=== PATIENT | female | born 1975 | race Asian ===

== ENCOUNTER 2020-12-23 15:51 | Emergency (ER) | payer BC ==
[~2020-12-23] VITALS: Ht 160 cm; Wt 73.5 kg
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
--- NOTE | 2020-12-23 16:10 | NUR ---
DR PATRICK AT BEDSIDE FOR EVAL.
--- NOTE | 2020-12-23 16:16 | NUR ---
CLEANER AND PREPARER AT BEDSIDE FOR R WRIST XRAY.
--- NOTE | 2020-12-23 17:03 | NUR ---
The patient is alert and oriented x4. Denies SOB, pain. Respiration regular and unlabored. Patient discharged to home in stable condition. Written and verbal after care instructions given. Patient verbalizes understanding of instruction. The patient left ER in stable condition.
[2020-12-23 17:04] VITALS: BP 128/72
== END 2020-12-23 17:06 | disposition home or self-care (01) ==
LOC: ER 15:53
DX: S52.591A Other fractures of lower end of right radius, initial encounter for closed fracture (principal); I10 Essential (primary) hypertension; Z88.1 Allergy status to other antibiotic agents; V49.49XA Driver injured in collision with other motor vehicles in traffic accident, initial encounter; Y93.89 Activity, other specified; Y92.488 Other paved roadways as the place of occurrence of the external cause; Y99.8 Other external cause status
CPT/HCPCS: 73110